=== PATIENT | male | born 1995 | race Caucasian/White ===

== ENCOUNTER 2020-11-29 23:19 | Day surgery (SDC) | payer BC ==
--- NOTE | 2020-11-30 02:04 | EDM.PDOC ---
ED HPI GENERAL MEDICAL PROBLEM - General Chief Complaint: Gastrointestinal Problem Stated Complaint: VOMITING Time Seen by Provider: 11/30/20 01:40 Source of Information: Reports: Patient, Family (Mother), Significant Other (Girlfriend) History Limitations: Reports: No Limitations - History of Present Illness INITIAL COMMENTS - FREE TEXT/NARRATIVE: Mr. Sharp is a very pleasant 25-year-old man who now presents the ED stating that he ate about 5 pieces of steak around 16:30 yesterday afternoon, 11/29/2020, and a short while later vomited it up. He states that the vomitus contained the steak that he had just eaten. Since then, however, he has the sensation that there is something stuck in his esophagus. He states that it hurts for him to swallow. He denies having abdominal pain. No recent fever. No recent constipation or diarrhea. He did not take any [id number] or home remedies prior to coming to the ED. No prior similar symptoms. Here in the ED, the patient's initial BP is found to be mildly elevated at 147/93, otherwise, he is hemodynamically stable, afebrile, saturating 97% on room air. He appears to be relatively comfortable, in no acute distress. Prior to yesterday afternoon, the patient denies having a recent fever, chills, sore throat, ear pain, nasal or sinus congestion, cough, dyspnea, chest pain, palpitations, nausea, vomiting, constipation, diarrhea, abdominal pain, urinary symptoms, recent weight gain or weight loss, recent bloody bowel movements or black bowel movements, recent joint aches, headaches, or rashes. The patient does not have a PCP. He has not received a COVID vaccination. Other Treatments FLOOR CARE SPECIALIST: Pt denies Chest Pain Score (Numeric/FACES): 5 - Related Data Allergies Allergy/AdvReac Type Severity Reaction Status Date / Time cat dander Allergy Sneezing Verified 11/29/20 23:57 dog dander Allergy Sneezing Verified 11/29/20 23:57 Past Medical History Respiratory History: Reports: Asthma (Suspected, not PFT-tested. Untreated.) - Past Surgical History HEENT Surgical History: Reports: Oral Surgery (dental extractions) Social & Family History - Tobacco Use Tobacco Use Status *Q: Never Tobacco User - Caffeine Use Caffeine Use: Reports: Soda - Alcohol Use Alcohol Use History: No - Recreational Drug Use Recreational Drug Use: No - Living Situation & Occupation Living situation: Reports: Single, with Significant Other (Girlfriend) Occupation: Employed (reefer truck driver) ED ROS GENERAL - Review of Systems Review Of Systems: Comprehensive ROS is negative, except as noted in HPI. ED EXAM, GI/ABD - Physical Exam Exam: See Below Exam Limited By: No Limitations General Appearance: Alert, WD/WN, No Apparent Distress Eyes: Bilateral: Normal Appearance, EOMI Ears: Normal External Exam, Hearing Grossly Normal Nose: Normal Inspection Throat/Mouth: Normal Inspection, Normal Lips, Normal Voice, No Airway Compromise Head: Atraumatic, Normocephalic Neck: Normal Inspection, Full Range of Motion Respiratory/Chest: No Respiratory Distress, Lungs Clear, Normal Breath Sounds, No Accessory Muscle Use Cardiovascular: Normal Peripheral Pulses, Regular Rate, Rhythm, No Edema, No Gallop, No JVD, No Murmur, No Rub GI/Abdominal Exam: Normal Bowel Sounds, Soft, Non-Tender (including the epigastrium), No Organomegaly, No Distention, No Abnormal Bruit, No Mass Back Exam: Normal Inspection, Full Range of Motion, NT Extremities: Normal Inspection, Normal Range of Motion, No Pedal Edema, Normal Capillary Refill Neurological: Alert, Oriented, Normal Cognition, No Motor/Sensory Deficits Psychiatric: Normal Affect Skin Exam: Warm, Dry, Intact, Normal Color, No Rash Course - Vital Signs Last Recorded V/S: Last Vital Signs Temp 36.6 C 11/30/20 00:06 Pulse 70 11/30/20 02:24 Resp 16 11/30/20 02:24 BP 136/83 11/30/20 02:24 Pulse Ox 98 11/30/20 02:24 - Orders/Labs/Meds Orders: Active Orders 24 hr Category Date Time Status Admission Status [Patient Status] [ADT] Routine ADT 11/30/20 04:30 Active Ready for Discharge [RC] PER UNIT ROUTINE Care 11/30/20 05:34 Active Sodium Chloride 0.9% [Normal Saline] 1,000 ml Med 11/30/20 02:00 Active IV ASDIRECTED Schedule Procedure [COMM] Stat Oth 11/30/20 04:33 Ordered Medication Orders Sodium Chloride (Normal Saline) 1,000 mls @ 150 mls/hr IV ASDIRECTED JOSE Last Admin: 11/30/20 02:42 Dose: 150 mls/hr Documented by: JOY Labs: Laboratory Tests 11/30/20 11/30/20 11/30/20 Range/Units 02:10 02:10 04:22 WBC 11.17 H (4.23-9.07) K/mm3 RBC 5.21 (4.63-6.08) M/mm3 Hgb 15.3 (13.7-17.5) gm/dl Hct 45.9 (40.1-51.0) % MCV 88.1 (79.0-92.2) fl MCH 29.4 (25.7-32.2) pg MCHC 33.3 (32.2-35.5) g/dl RDW Std Deviation 40.4 (35.1-43.9) fL Plt Count 288 (163-337) K/mm3 MPV 8.6 L (9.4-12.3) fl Neutrophils % (Manual) 67 H (40-60) % Band Neutrophils % 0 (0-10) % Lymphocytes % (Manual) 24 (20-40) % Atypical Lymphs % 0 % Monocytes % (Manual) 4 (2-10) % Eosinophils % (Manual) 4 (0.8-7.0) % Basophils % (Manual) 1 (0.2-1.2) Platelet Estimate Adequate RBC Morph Comment Normal Sodium 142 (136-145) mEq/L Potassium 3.8 (3.5-5.1) mEq/L Chloride 105 (98-107) mEq/L Carbon Dioxide 32 (21-32) mEq/L Anion Gap 8.8 (5-15) BUN 8 (7-18) mg/dL Creatinine 1.1 (0.7-1.3) mg/dL Est Cr Clr Drug Dosing 123.76 mL/min Estimated GFR (MDRD) > 60 (>60) mL/min BUN/Creatinine Ratio 7.3 L (14-18) Glucose 100 H (70-99) mg/dL Calcium 8.5 (8.5-10.1) mg/dL Total Bilirubin 0.8 (0.2-1.0) mg/dL AST 20 (15-37) U/L ALT 43 (16-63) U/L Alkaline Phosphatase 70 (46-116) U/L Total Protein 8.1 (6.4-8.2) g/dl Albumin 4.6 (3.4-5.0) g/dl Globulin 3.5 gm/dL Albumin/Globulin Ratio 1.3 (1-2) SARS-CoV-2 RNA (JUAN) Negative (NEGATIVE) Meds: Medications Generic Name Dose Route Start Last Admin Trade Name Opal PRN Reason Stop Dose Admin Sodium Chloride 1,000 mls @ 150 mls/hr 11/30/20 02:00 11/30/20 02:42 Normal Saline IV 150 mls/hr ASDIRECTED JOSE Administration Discontinued Medications Generic Name Dose Route Start Last Admin Trade Name Opal PRN Reason Stop Dose Admin Dexamethasone Confirm 11/30/20 04:51 Dexamethasone 4 Mg/Ml Sdv Administered 11/30/20 04:52 Dose 4 mg .ROUTE .STK-MED ONE Fentanyl Confirm 11/30/20 04:51 Fentanyl 250 Mcg/5 Ml Sdv Administered 11/30/20 04:52 Dose 250 mcg .ROUTE .STK-MED ONE Glucagon 1 mg 11/30/20 02:04 11/30/20 02:22 Glucagon,Human Recombinant 1 Mg Vial IVPUSH 11/30/20 02:05 1 mg ONETIME ONE Administration Lidocaine HCl Confirm 11/30/20 04:51 Xylocaine-Mpf 1% Administered 11/30/20 04:52 Dose 6 mls @ as directed .ROUTE .STK-MED ONE Metoclopramide HCl 10 mg 11/30/20 01:58 11/30/20 02:19 Metoclopramide 10 Mg/2 Ml Sdv IVPUSH 11/30/20 01:59 10 mg ONETIME STA Administration Ondansetron HCl Confirm 11/30/20 04:51 Ondansetron 4 Mg/2 Ml Sdv Administered 11/30/20 04:52 Dose 4 mg .ROUTE .STK-MED ONE Propofol Confirm 11/30/20 04:51 Propofol 200 Mg/20 Ml Sdv Administered 11/30/20 04:52 Dose 200 mg .ROUTE .STK-MED ONE - Re-Assessments/Exams Free Text/Narrative Re-Assessment/Exam: 11/30/20 01:59 The patient reports that he feels like there is something going on in his throat whenever he eats or drinks. The patient's mother seems convinced that the patient has an impacted esophageal food bolus, however, the patient states that after he ate about 5 bites of meat around 16:00, he then vomited, and that the vomit contained the meat that he had just eaten. If the patient reported that he merely had dry heaves and was unable to vomit up any stomach contents, then an impacted esophageal food bolus would be on the differential, but if he is able to vomit up stomach contents, then an impacted esophageal food bolus is not possible. I had the patient take a sip of water. He kept it down for a few minutes, but then started retching. This of course raises the possibility that in fact there is an impacted esophageal food bolus, despite the patient reporting a vomiting of food stuff. The patient would likely benefit from an EGD. Perhaps he has a Zenker's diverticulum or Schatzki ring, but for today's purposes, I will have his nurse place an IV and draw a CBC and CMP, just to make sure that there are no significant fluid or electrolyte shifts. In the meantime, we will see if we get the patient comfortable with some IV fluid, IV Reglan, and IV glucagon. If his symptoms persist, I may need to call the Surgeon to consider taking to the OR for an EGD. 11/30/20 04:07 The patient has been comfortable, even sleeping. He states that he still has a sensation like there is something stuck in his throat. I gave him some water to drink, and in less than a minute, he was retching it back up. Case discussed with Dr. Hector at 04:05. He asked that we call the OR team in, so that he can take the patient to the OR for an EGD. 11/30/20 04:09 The above was discussed with the patient, his mother, and girlfriend. He is agreeable. 11/30/20 05:48 The patient's a swab for the SARS-CoV-2 virus is negative. Departure - Departure Time of Disposition: 04:10 Disposition: DC/Tfer to [facility] Condition: Good Clinical Impression: Esophageal obstruction due to food impaction - Discharge Information *PRESCRIPTION DRUG MONITORING PROGRAM REVIEWED*: Not Applicable *COPY OF PRESCRIPTION DRUG MONITORING REPORT IN PATIENT CINDA: Not Applicable Sepsis Event Note (ED) - Focused Exam Vital Signs: Vital Signs Temp Pulse Resp BP Pulse Ox 11/30/20 02:24 70 16 136/83 98 11/30/20 00:21 69 18 152/108 H 95 11/30/20 00:06 36.6 C 81 18 147/93 H 97 - My Orders Last 24 Hours: My Active Orders 11/30/20 02:00 Sodium Chloride 0.9% [Normal Saline] 1,000 ml IV ASDIRECTED 11/30/20 04:30 Admission Status [Patient Status] [ADT] Routine 11/30/20 04:33 Schedule Procedure [COMM] Stat - Assessment/Plan Last 24 Hours: My Active Orders 11/30/20 02:00 Sodium Chloride 0.9% [Normal Saline] 1,000 ml IV ASDIRECTED 11/30/20 04:30 Admission Status [Patient Status] [ADT] Routine 11/30/20 04:33 Schedule Procedure [COMM] Stat
[2020-11-30] MEDS: Metoclopramide 10 MG/2 ML SDV IVPUSH STA (02:19)
[2020-11-30] MEDS: Glucagon,Human Recombinant 1 MG Vial IVPUSH ONE (02:22)
[2020-11-30] MEDS: Sodium Chloride 0.9% 1,000 ML IV SCH (02:42)
--- NOTE | 2020-11-30 04:28 | PCM.PREANE ---
Preanesthetic Assessment - Procedure Proposed Procedure: EGD for food bolus - Anesthesia/Transfusion/Family Hx Anesthesia History: Prior Anesthesia Without Reaction Family History of Anesthesia Reaction: No Transfusion History: No Prior Transfusion(s) Intubation History: Unknown - Review of Systems General: No Symptoms Pulmonary: No Symptoms Gastrointestinal: Nausea, Vomiting, Other (Throat/esophagous pain) Neurological: No Symptoms Other: Reports: None - Physical Assessment NPO Status Date: 11/29/20 (Last ate at 1630; attempted water 0400 but vomited) NPO Status Time: 16:30 Vital Signs: Last Vital Signs Temp 97.8 F 11/30/20 00:06 Pulse 70 11/30/20 02:24 Resp 16 11/30/20 02:24 BP 136/83 11/30/20 02:24 Pulse Ox 98 11/30/20 02:24 Height: 1.91 m Weight: 85.275 kg ASA Class: 1E Mental Status: Alert & Oriented x3 Airway Class: Mallampati = 2 Dentition: Reports: Normal Dentition, Caries Thyro-Mental Finger Breadths: 3 Mouth Opening Finger Breadths: 3 ROM/Head Extension: Full Lungs: Clear to Auscultation, Normal Respiratory Effort Cardiovascular: Regular Rate, Regular Rhythm, No Murmurs - Lab Values: Laboratory Last Values WBC 11.17 K/mm3 (4.23-9.07) H 11/30/20 02:10 RBC 5.21 M/mm3 (4.63-6.08) 11/30/20 02:10 Hgb 15.3 gm/dl (13.7-17.5) 11/30/20 02:10 Hct 45.9 % (40.1-51.0) 11/30/20 02:10 MCV 88.1 fl (79.0-92.2) 11/30/20 02:10 MCH 29.4 pg (25.7-32.2) 11/30/20 02:10 MCHC 33.3 g/dl (32.2-35.5) 11/30/20 02:10 RDW Std Deviation 40.4 fL (35.1-43.9) 11/30/20 02:10 Plt Count 288 K/mm3 (163-337) 11/30/20 02:10 MPV 8.6 fl (9.4-12.3) L 11/30/20 02:10 Neutrophils % (Manual) 67 % (40-60) H 11/30/20 02:10 Band Neutrophils % 0 % (0-10) 11/30/20 02:10 Lymphocytes % (Manual) 24 % (20-40) 11/30/20 02:10 Atypical Lymphs % 0 % 11/30/20 02:10 Monocytes % (Manual) 4 % (2-10) 11/30/20 02:10 Eosinophils % (Manual) 4 % (0.8-7.0) 11/30/20 02:10 Basophils % (Manual) 1 (0.2-1.2) 11/30/20 02:10 Platelet Estimate Adequate 11/30/20 02:10 RBC Morph Comment Normal 11/30/20 02:10 Sodium 142 mEq/L (136-145) 11/30/20 02:10 Potassium 3.8 mEq/L (3.5-5.1) 11/30/20 02:10 Chloride 105 mEq/L (98-107) 11/30/20 02:10 Carbon Dioxide 32 mEq/L (21-32) 11/30/20 02:10 Anion Gap 8.8 (5-15) 11/30/20 02:10 BUN 8 mg/dL (7-18) 11/30/20 02:10 Creatinine 1.1 mg/dL (0.7-1.3) 11/30/20 02:10 Est Cr Clr Drug Dosing 123.76 mL/min 11/30/20 02:10 Estimated GFR (MDRD) > 60 mL/min (>60) 11/30/20 02:10 BUN/Creatinine Ratio 7.3 (14-18) L 11/30/20 02:10 Glucose 100 mg/dL (70-99) H 11/30/20 02:10 Calcium 8.5 mg/dL (8.5-10.1) 11/30/20 02:10 Total Bilirubin 0.8 mg/dL (0.2-1.0) 11/30/20 02:10 AST 20 U/L (15-37) 11/30/20 02:10 ALT 43 U/L (16-63) 11/30/20 02:10 Alkaline Phosphatase 70 U/L (46-116) 11/30/20 02:10 Total Protein 8.1 g/dl (6.4-8.2) 11/30/20 02:10 Albumin 4.6 g/dl (3.4-5.0) 11/30/20 02:10 Globulin 3.5 gm/dL 11/30/20 02:10 Albumin/Globulin Ratio 1.3 (1-2) 11/30/20 02:10 - Allergies Allergies/Adverse Reactions: Allergies Allergy/AdvReac Type Severity Reaction Status Date / Time cat dander Allergy Sneezing Verified 11/29/20 23:57 dog dander Allergy Sneezing Verified 11/29/20 23:57 - Blood Blood Available: No Product(s) Available: None - Acknowledgements Anesthesia Type Planned: General Anesthesia Pt an Appropriate Candidate for the Planned Anesthesia: Yes Alternatives and Risks of Anesthesia Discussed w Pt/Guardian: Yes Pt/Guardian Understands and Agrees with Anesthesia Plan: Yes PreAnesthesia Questionnaire - Past Health History Medical/Surgical History: Denies Medical/Surgical History HEENT History: Reports: None Cardiovascular History: Reports: None Respiratory History: Reports: Asthma (Suspected, not PFT-tested. Untreated.) Gastrointestinal History: Reports: GERD Genitourinary History: Reports: None MAIN LINE STATION ENGINEER History: Reports: None Musculoskeletal History: Reports: None Neurological History: Reports: None Psychiatric History: Reports: None Endocrine/Metabolic History: Reports: None Hematologic History: Reports: None Immunologic History: Reports: None Oncologic (Cancer) History: Reports: None Dermatologic History: Reports: None - Past Surgical History HEENT Surgical History: Reports: Oral Surgery (dental extractions) - SUBSTANCE USE Tobacco Use Status *Q: Never Tobacco User Tobacco Use Within Last Twelve Months: No Second Hand Smoke Exposure: No Days Per Week of Alcohol Use: 0 Number of Drinks Per Day: 0 Total Drinks Per Week: 0 Recreational Drug Use History: No - CURRENT (IN HOUSE) MEDS Current Meds: Current Medications Sodium Chloride (Normal Saline) 1,000 mls @ 150 mls/hr IV ASDIRECTED JOSE Last Admin: 11/30/20 02:42 Dose: 150 mls/hr Documented by: Discontinued Medications Glucagon (Glucagon,Human Recombinant 1 Mg Vial) 1 mg IVPUSH ONETIME ONE Stop: 11/30/20 02:05 Last Admin: 11/30/20 02:22 Dose: 1 mg Documented by: Metoclopramide HCl (Metoclopramide 10 Mg/2 Ml Sdv) 10 mg IVPUSH ONETIME STA Stop: 11/30/20 01:59 Last Admin: 11/30/20 02:19 Dose: 10 mg Documented by:
--- NOTE | 2020-11-30 04:48 | PCM.HP.2 ---
H&P History of Present Illness - General Date of Service: 11/30/20 Admit Problem/Dx: Admission Diagnosis/Problem Admission Diagnosis/Problem Esophagogastroduodenoscopy Source of Information: Patient History Limitations: Reports: No Limitations - History of Present Illness Initial Comments - Free Text/Narative: Mr. Sharp is a healthy 25 yo man who presents with esophageal food impaction. This has never happened to him before. He was eating steak last night for dinner. After he felt the food get stuck, he vomited but still had the sensation that his esophagus was obstructed. He has been unable to drink water and swallow his secretions. He has some chest pain currently. On review, he reports some occasional, minor issues with heartburn but he takes no regular medication. He has never had endoscopy. Chest Pain Score (Numeric/FACES): 5 - Related Data Allergies/Adverse Reactions: Allergies Allergy/AdvReac Type Severity Reaction Status Date / Time cat dander Allergy Sneezing Verified 11/29/20 23:57 dog dander Allergy Sneezing Verified 11/29/20 23:57 Past Medical History - Past Health History Medical/Surgical History: Denies Medical/Surgical History HEENT History: Reports: None Cardiovascular History: Reports: None Respiratory History: Reports: Asthma (Suspected, not PFT-tested. Untreated.) Gastrointestinal History: Reports: GERD Genitourinary History: Reports: None SCRAPER MEAT History: Reports: None Musculoskeletal History: Reports: None Neurological History: Reports: None Psychiatric History: Reports: None Endocrine/Metabolic History: Reports: None Hematologic History: Reports: None Immunologic History: Reports: None Oncologic (Cancer) History: Reports: None Dermatologic History: Reports: None - Past Surgical History HEENT Surgical History: Reports: Oral Surgery (dental extractions) Social & Family History - Family History Family Medical History: No Pertinent Family History - Tobacco Use Tobacco Use Status *Q: Never Tobacco User Second Hand Smoke Exposure: No - Caffeine Use Caffeine Use: Reports: Soda - Alcohol Use Days Per Week of Alcohol Use: 0 Number of Drinks Per Day: 0 Total Drinks Per Week: 0 - Recreational Drug Use Recreational Drug Use: No Drug Use in Last 12 Months: No - Living Situation & Occupation Living situation: Reports: Single, with Significant Other (Girlfriend) Occupation: Employed (lyft driver) H&P Review of Systems - Review of Systems: Review Of Systems: See Below General: Reports: No Symptoms HEENT: Reports: No Symptoms Pulmonary: Reports: No Symptoms Cardiovascular: Reports: No Symptoms Gastrointestinal: Reports: Other (dysphagia) Genitourinary: Reports: No Symptoms Musculoskeletal: Reports: No Symptoms Skin: Reports: No Symptoms Psychiatric: Reports: No Symptoms Neurological: Reports: No Symptoms Hematologic/Lymphatic: Reports: No Symptoms Immunologic: Reports: No Symptoms Exam - Exam Exam: See Below - Vital Signs Vital Signs: Last Vital Signs Temp 36.6 C 11/30/20 00:06 Pulse 70 11/30/20 02:24 Resp 16 11/30/20 02:24 BP 136/83 11/30/20 02:24 Pulse Ox 98 11/30/20 02:24 Weight: 85.275 kg - Exam General: Alert, Oriented, Other (appears uncomfortable) HEENT: Conjunctiva Clear Neck: Supple, Trachea Midline Lungs: Normal Respiratory Effort Cardiovascular: Regular Rate GI/Abdominal Exam: Soft Extremities: Normal Inspection Skin: Warm, Dry Psychiatric: Alert, Normal Mood - Patient Data Lab Results Last 24 hrs: Laboratory Results - last 24 hr 11/30/20 11/30/20 Range/Units 02:10 02:10 WBC 11.17 H (4.23-9.07) K/mm3 RBC 5.21 (4.63-6.08) M/mm3 Hgb 15.3 (13.7-17.5) gm/dl Hct 45.9 (40.1-51.0) % MCV 88.1 (79.0-92.2) fl MCH 29.4 (25.7-32.2) pg MCHC 33.3 (32.2-35.5) g/dl RDW Std Deviation 40.4 (35.1-43.9) fL Plt Count 288 (163-337) K/mm3 MPV 8.6 L (9.4-12.3) fl Neutrophils % (Manual) 67 H (40-60) % Band Neutrophils % 0 (0-10) % Lymphocytes % (Manual) 24 (20-40) % Atypical Lymphs % 0 % Monocytes % (Manual) 4 (2-10) % Eosinophils % (Manual) 4 (0.8-7.0) % Basophils % (Manual) 1 (0.2-1.2) Platelet Estimate Adequate RBC Morph Comment Normal Sodium 142 (136-145) mEq/L Potassium 3.8 (3.5-5.1) mEq/L Chloride 105 (98-107) mEq/L Carbon Dioxide 32 (21-32) mEq/L Anion Gap 8.8 (5-15) BUN 8 (7-18) mg/dL Creatinine 1.1 (0.7-1.3) mg/dL Est Cr Clr Drug Dosing 123.76 mL/min Estimated GFR (MDRD) > 60 (>60) mL/min BUN/Creatinine Ratio 7.3 L (14-18) Glucose 100 H (70-99) mg/dL Calcium 8.5 (8.5-10.1) mg/dL Total Bilirubin 0.8 (0.2-1.0) mg/dL AST 20 (15-37) U/L ALT 43 (16-63) U/L Alkaline Phosphatase 70 (46-116) U/L Total Protein 8.1 (6.4-8.2) g/dl Albumin 4.6 (3.4-5.0) g/dl Globulin 3.5 gm/dL Albumin/Globulin Ratio 1.3 (1-2) Result Diagrams: 11/30/20 02:10 11/30/20 02:10 Sepsis Event Note - Focused Exam Vital Signs: Vital Signs Temp Pulse Resp BP Pulse Ox 11/30/20 02:24 70 16 136/83 98 11/30/20 00:21 69 18 152/108 H 95 11/30/20 00:06 36.6 C 81 18 147/93 H 97 Problem List Initiated/Reviewed/Updated: Yes Orders Last 24hrs: Active Orders 24 hr Category Date Time Status Admission Status [Patient Status] [ADT] Routine ADT 11/30/20 04:30 Active CORONAVIRUS COVID-19 JUAN [MOLEC] Stat Lab 11/30/20 04:22 Received Sodium Chloride 0.9% [Normal Saline] 1,000 ml Med 11/30/20 02:00 Active IV ASDIRECTED Schedule Procedure [COMM] Stat Oth 11/30/20 04:33 Ordered Medication Orders Sodium Chloride (Normal Saline) 1,000 mls @ 150 mls/hr IV ASDIRECTED JOSE Last Admin: 11/30/20 02:42 Dose: 150 mls/hr Documented by: JOY Assessment/Plan Comment:: Esophageal food impaction. Plan for therapeutic upper endoscopy with esophageal biopsy. - Mortality Measure Prognosis:: Good
[2020-11-30] MEDS ORDERED: Propofol 200 MG/20 ML SDV ONE (04:51)
[2020-11-30] MEDS ORDERED: Dexamethasone 4 MG/ML SDV ONE (04:51)
[2020-11-30] MEDS ORDERED: Lidocaine 1% 6 ML ONE (04:51)
[2020-11-30] MEDS ORDERED: Ondansetron 4 MG/2 ML SDV ONE (04:51)
[2020-11-30] MEDS ORDERED: fentaNYL 250 MCG/5 ML SDV ONE (04:51)
[2020-11-30] MEDS ORDERED: Succinylcholine/Sod PF 100 MG/5 ML SYRINGE IV ONE (04:51)
--- NOTE | 2020-11-30 05:14 | PCM.PRNOTE ---
- Free Text/Narrative Note: Date: 11/30/2020 Procedure: therapeutic endoscopy, removal of impacted food bolus, esophageal biopsies Indication: food impaction, initial episode Endoscopist: Kit Hector MD Findings: moderate pooled fluid in esophagus, with small piece of meat in distal esophagus which was pushed forward into the stomach relatively easily. Gross inflammation of the distal esophagus. Stomach appeared normal except for some inflammatory changes at the cardia. Detailed Report: The patient was taken to the endoscopy suite and placed supine. Timeout was performed and general endotracheal anesthesia was initiated. A bite-block was placed and the endoscope was inserted into the mouth and down the esophagus. There was moderate pooled fluid in the esophagus which was suctioned. Distally, piece of meat was encountered. This was able to be pushed antegrade into the stomach relatively easily with the endoscope. The stomach was inspected and appeared normal, and the food bolus appeared to be sitting within the stomach, cleared of the esophagus. No additional food was noted in the esophagus. The cardia of the stomach appeared mildly inflamed, and a biopsy of this mucosa was obtained with cold forceps. The scope was withdrawn into the esophagus, and the distal esophageal mucosa was grossly inflamed. Sample biopsies with cold forceps were obtained, including one area that had a small plaque. An additional random biopsy of the midesophagus was obtained to evaluate for mucosal eosinophilia. Air was suctioned as the scope was withdrawn entirely. The patient tolerated the procedure well.
[2020-11-30] MEDS ORDERED: fentaNYL 100 MCG/2 ML SDV IVPUSH PRN (05:56)
[2020-11-30] MEDS ORDERED: HYDROmorphone 0.5 MG/0.5 ML Syringe IVPUSH PRN (05:56)
[2020-11-30] MEDS ORDERED: Ondansetron 4 MG/2 ML SDV IVPUSH PRN (05:56)
--- NOTE | 2020-11-30 05:57 | PCM.POSTAN ---
POST ANESTHESIA ASSESSMENT - MENTAL STATUS Mental Status: Alert, Oriented - VITAL SIGNS Vital Signs: Last Vital Signs Temp 98.3 F 11/30/20 05:50 Pulse 77 11/30/20 05:50 Resp 16 11/30/20 05:50 BP 130/71 11/30/20 05:50 Pulse Ox 95 11/30/20 05:50 - RESPIRATORY Respiratory Status: Respiratory Rate WNL, Airway Patent, O2 Saturation Stable - CARDIOVASCULAR CV Status: Pulse Rate WNL, Blood Pressure Stable - GASTROINTESTINAL GI Status: No Symptoms - PAIN Pain Score: 0 - POST OP HYDRATION Hydration Status: Adequate & Stable
[2020-11-30 06:30] VITALS: BP 123/62; PULSE 71
--- NOTE | 2020-11-30 07:25 | PCM48HPAN ---
Post Anesthesia Note - EVALUATION WITHIN 48HRS OF ANESTHETIC Vital Signs in Normal Range: Yes Patient Participated in Evaluation: Yes Respiratory Function Stable: Yes Airway Patent: Yes Cardiovascular Function Stable: Yes Hydration Status Stable: Yes Pain Control Satisfactory: Yes Nausea and Vomiting Control Satisfactory: Yes Mental Status Recovered: Yes Vital Signs: Last Vital Signs Temp 97.5 F 11/30/20 06:30 Pulse 71 11/30/20 06:30 Resp 13 11/30/20 06:30 BP 123/62 11/30/20 06:30 Pulse Ox 95 11/30/20 06:38 - COMMENTS/OBSERVATIONS Free Text/Narrative:: See cell phone repair technician
== END 2020-11-30 06:55 | disposition home or self-care (01) ==
LOC: JD.ED 23:19 → JD.SDS 11-30 04:35
PROVIDERS: ATTEND Surgery
DX: K20.0 Eosinophilic esophagitis (principal); K22.10 Ulcer of esophagus without bleeding; T18.128A Food in esophagus causing other injury, initial encounter; K21.9 Gastro-esophageal reflux disease without esophagitis; J45.909 Unspecified asthma, uncomplicated; Z01.812 Encounter for preprocedural laboratory examination; Z98.890 Other specified postprocedural states; Z20.822 Contact with and (suspected) exposure to COVID-19
CPT/HCPCS: 00731; 36415; 80053; 85007; 85027; 96374; 96375; 99284-25; 99285; J0330; J1100; J1610; J2405; J2704; J2765; J3010; J7030; U0002